=== PATIENT | male | born 1950 | race Caucasian/White ===

== ENCOUNTER → 2025-01-06 | Outpatient (CLI) | payer MEDICARE, OTHER, SELFPAY ==
[2025-01-07 15:08] LABS: PSA, Free 2.14 ng/mL; PSA, Free % 24.5 % (.); PSA, Total Ultrasensitive 8.730 ng/mL (0.000-4.000)
== END | disposition home or self-care (01) ==
LOC: LAB 10:35
PROVIDERS: PCP Nurse Practitioner Family; Referring Provider Urology; Visit Provider Urology
DX: R97.20 Elevated prostate specific antigen [PSA] (principal)
CPT/HCPCS: 36415; 84153; 84154